=== PATIENT | male | born 1940 | race Caucasian/White ===

== ENCOUNTER 2018-10-14 13:54 | Outpatient (CLI) | payer MEDICARE, OTHER ==
--- NOTE | 2018-10-14 16:08 | RAD ---
CERVICAL SPINE AP AND LATERAL STANDARD: Date: 10/14/18 HISTORY: Fall. 12.9XXA. COMPARISON: None. FINDINGS: There appears to be a fracture of the anterior inferior C2 vertebral body. There is narrowing of the C4-5 and C5-6 disc spaces. 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 Patient is in a cervical bonnie ar. IMPRESSION: Fracture of the anterior inferior end plate of C2. Recommend correlation with recent previous imaging . If patient does not have any, a CT of the cervical spine is recommended. POS: [facility]
== END 2018-10-14 13:55 | disposition home or self-care (01) ==
LOC: TBSIIMAG 13:54
PROVIDERS: ATTEND Neurological Surgery
DX: S12.100A Unspecified displaced fracture of second cervical vertebra, initial encounter for closed fracture (principal)
CPT/HCPCS: 72040

== ENCOUNTER 2018-11-11 15:44 | Outpatient (CLI) | payer MEDICARE, OTHER ==
--- NOTE | 2018-11-11 17:41 | RAD ---
CERVICAL SPINE FIVE VIEWS: 11/11/18 HISTORY: Cervical spine fracture. Followup. COMPARISON: 10/14/18. FINDINGS: Small corner fracture involving the anterior inferior margin of the C2 vertebral body with minimal di straction and displacement is similar to the previous exam. Osseous structures are markedly demineral ized. No abnormal translational motion upon flexion or extension. Osseous structures are demineralize d. IMPRESSION: Stable CT appearance of the C2 inferior end plate fracture. Degenerative changes. Osteoporosis. POS: [facility]
== END 2018-11-11 15:45 | disposition home or self-care (01) ==
LOC: TBSIIMAG 15:44
PROVIDERS: ATTEND Neurological Surgery
DX: S12.9XXD Fracture of neck, unspecified, subsequent encounter (principal); M47.812 Spondylosis without myelopathy or radiculopathy, cervical region; M81.0 Age-related osteoporosis without current pathological fracture
CPT/HCPCS: 72050

== ENCOUNTER 2018-12-09 15:33 | Outpatient (CLI) | payer MEDICARE, OTHER ==
--- NOTE | 2018-12-09 17:15 | RAD ---
CERVICAL SPINE AP LATERAL STANDARD: 12/09/18 HISTORY: Fracture followup. COMPARISON: Cervical spine radiographs 11/11/18. FINDINGS: There is unchanged appearance of the anterior inferior end plate of C2 fracture. No significant inter vangie bridging bone formation. No new acute superimposed fracture or malalignment. Moderate degenerative disc space narrowing throug hout the cervical spine with grade I anterolisthesis of C5 over C6, degenerative in nature. IMPRESSION: No significant interval healing of the anterior inferior end plate of C2 fracture. POS: [facility]
== END 2018-12-09 15:34 | disposition home or self-care (01) ==
LOC: TBSIIMAG 15:33
PROVIDERS: ATTEND Neurological Surgery
DX: S12.9XXA Fracture of neck, unspecified, initial encounter (principal)
CPT/HCPCS: 72040

== ENCOUNTER 2019-03-08 15:32 | Outpatient (CLI) | payer MEDICARE, OTHER ==
--- NOTE | 2019-03-08 16:04 | RAD ---
3 views of the cervical spine: 03/08/2019 COMPARISON: 12/09/2018 HISTORY: Reevaluate cervical spine fracture FINDINGS: There is an obliquely oriented fracture involving the inferior anterior aspect of the C2 ve rtebral body, similar when compared to the prior examination. There is mild anterolisthesis at C5-6 measuring 3-4 mm on neutral, flexion, and extension views. Minimal anterolisthesis also noted at C4-5 measuring approximately 2 mm. No prevertebral soft tissue swelling. No new fracture identified. Disc space narrowing and anterior osteophyte formation noted at C5-6 and C6-7. IMPRESSION: Obliquely oriented fracture again noted at the anterior inferior aspect of the C2 vertebr al body. No evidence for interval healing. No bridging bone formation. Transcribed Date/Time: 03/08/2019 4:20 PM
== END 2019-03-08 15:33 | disposition home or self-care (01) ==
LOC: TBSIIMAG 15:32
PROVIDERS: ATTEND Neurological Surgery
DX: S12.100D Unspecified displaced fracture of second cervical vertebra, subsequent encounter for fracture with routine healing (principal)
CPT/HCPCS: 72040